=== PATIENT | male | born 1945 | race Caucasian/White ===

== ENCOUNTER 2021-04-02 08:00 | Outpatient (RCR) | payer OTHER, SELFPAY ==
--- NOTE | 2021-04-07 13:21 | PCCPR ---
Pt did not show up for rehab session this morning, call placed to patient. States he was admitted to [facility] on Wednesday for CHF exacerbation. Will be discharged this afternoon. New diuretic medication and an increase in heart failure medication. Informed patient that we would need a medical release for him to return to cardiac rehab and will most likely happen after his scheduled follow up once discharged from hospital. Pt verbalized understanding. Pt program placed on hold at this time.
== END 2021-04-02 23:59 | disposition home or self-care (01) ==
DX: Z98.61 Coronary angioplasty status (principal)
CPT/HCPCS: 93798

== ENCOUNTER 2021-05-21 08:00 | Outpatient (RCR) | payer OTHER, SELFPAY ==
--- NOTE | 2021-04-25 09:00 | ECG_ITS ---
Measurements Intervals [place] Rate: 105 P: 91 NC: 269 QRS: -82 QRSD: 206 T: 97 QT: 482 QTc: 638 Interpretive Statements ATRIAL SENSE- ELECTRONIC VENTRICULAR PACEMAKER UNDERLYING SINUS OR ECTOPIC ATRIAL TACHYCARDIA BASELINE ARTIFACT- I, II, AVR, V1-V6 NO FURTHER INTERPRETATION IS POSSIBLE ABNORMAL ECG Electronically Signed On 04-25-2021 16:20:45 RUSSIAN HISTORY PROFESSOR by Pb Cruz D.O.
== END 2021-05-30 14:10 | disposition home or self-care (01) ==
DX: Z98.61 Coronary angioplasty status (principal)
CPT/HCPCS: 93005; 93798

== ENCOUNTER 2022-02-23 10:46 | Outpatient (CLI) | payer MEDICARE, SELFPAY ==
--- NOTE | 2022-02-23 10:50 | ECG_ITS ---
Measurements Intervals [place] Rate: 71 P: 33 GA: 180 QRS: -28 QRSD: 129 T: 70 QT: 447 QTc: 486 Interpretive Statements SINUS RHYTHM WITH OCCASIONAL VENTRICULAR PREMATURE COMPLEXES BORDERLINE LEFT AXIS DEVIATION [QRS AXIS < -20] MODERATE INTRAVENTRICULAR CONDUCTION DELAY [110+ ms QRS DURATION] ST DEVIATION AND MODERATE T-WAVE ABNORMALITY, CONSIDER LATERAL ISCHEMIA OR LEFT VENTRICULAR HYPERTROPHY COMPARED TO ECG 04/25/2021 09:01:20 SINUS RHYTHM NOW PRESENT INTRAVENTRICULAR CONDUCTION DELAY NOW PRESENT VENTRICULAR PACING IS NOT SEEN ON THIS STUDY Electronically Signed On 02-25-2022 19:38:10 CDT by Edelmira Block M.D.
== END 2022-02-23 10:47 | disposition home or self-care (01) ==
LOC: CHSCARD 11:02
PROVIDERS: Visit Provider Internal Medicine Cardiovascular Disease
DX: Z98.61 Coronary angioplasty status (principal)
CPT/HCPCS: 93005

== ENCOUNTER 2022-04-06 09:30 | Outpatient (RCR) | payer SELFPAY ==
--- NOTE | 2022-02-23 10:30 | PCCPR ---
Pt arrived for 929 phase 3 cardiac rehab session, no complaints. B/P 130/74. Pt exercised on treadmill and nustep and performed a cool down. Post exercise B/P 111/70, had patient sit and rest to make sure B/P stabilizes, re-check after 3 minutes, 95/65. Pt has drank 8oz water, encouraged to drink another bottle and continue to rest. After 2 min, pt reports, I am feeling a little dizzy , while re-checking B/P pt had SYNCOPAL EPISODE. Slouched over in chair, lasted approx 4-5 seconds, arousable to name and touch, immediately alert and oriented. Stat EKG obtained. Final B/P 113/68. Pt informed and with patient. Notification sent to job tracer Dr. Rajiv Kaye, however office is closed d/t holiday. Pt reports feeling alright , sent home with with instructions to seek emergency care if happens again or any other symptoms/concerns. Pt has had 2 previous syncopal episodes at home in the last 2 months, pt reports cardiology making adjustments to B/P medications.
== END 2022-04-13 10:59 | disposition home or self-care (01) ==
LOC: CHSCPRIII 09:30
DX: Z98.61 Coronary angioplasty status (principal)
CPT/HCPCS: 99199

== ENCOUNTER 2022-05-08 10:54 | Emergency (ER) | payer OTHER, MEDICARE, SELFPAY ==
[2022-05-08 11:06] VITALS: BP 89/65; PULSE 88; RESP 16; TEMP 36.7; O2SAT 100
[2022-05-08 11:10] VITALS: BP 98/60; O2SAT 96
--- NOTE | 2022-05-08 11:36 | ED.URI ---
HPI - URI/Sore Throat General Chief Complaint: Upper Respiratory Infection Stated Complaint: SOB, body aches, headache, sore throat, cough Time Seen by Provider: 05/08/22 11:15 Source: patient and RN notes reviewed Mode of arrival: ambulatory Limitations: no limitations History of Present Illness HPI Narrative: Patient states that he tested positive for COVID last evening. He has been ill for the last 2-3 days. He has been having fever cough fatigue sore throat. He is concerned as he was recently in the hospital for significant congestive heart failure and had cardiac stents placed. He says he gets a little short of breath when he exerts himself. That has made him little more concerned. MD elicited complaint: fever, cough and sore throat Onset (ago): day(s) (3) Consistency: constant Severity: moderate Description of mucous: clear Able to tolerate fluids by mouth: Yes Exacerbating factors: other Relieving factors: nothing Associated symptoms: shortness of breath (mild with exertion) and other (fatigue) Treatments prior to arrival: none Related Data Home Medications Medication Instructions Recorded Confirmed aspirin 81 mg tablet 81 mg PO DAILY 05/08/22 05/08/22 carvedilol 3.125 mg tablet (Coreg) 3.125 mg PO BID 05/08/22 05/08/22 melatonin 3 mg tablet 3 mg PO HS 05/08/22 05/08/22 metoprolol succinate 25 mg 25 mg PO DAILY 05/08/22 05/08/22 tablet,extended release 24 hr primidone 250 mg tablet 250 mg PO HS 05/08/22 05/08/22 rosuvastatin 40 mg tablet 40 mg PO DAILY 05/08/22 05/08/22 Allergies Allergy/AdvReac Type Severity Reaction Status Date / Time No Known Allergies Allergy Mild Verified 09/18/09 06:38 Review of Systems Review of Systems: All systems reviewed & are unremarkable except as noted in HPI and below PMFSH Family History Family History (Updated 01/11/14 @ 07:13 by DOCTOR UNKNOWN) Mother Family history of multiple sclerosis Sibling Hypertension Father Hypertension, Onset Age: 85 Family history of Alzheimer's disease, Onset Age: 85 Social History Social History Smoking status: Never smoker Alcohol intake: current Exam Const: General: healthy appearing, no acute distress and alert Nutritional Appearance: well nourished Orientation/consciousness: patient oriented x3 Limitations: no limitations HENMT: Head: normal to inspection Ears: external ears normal Eyes: Conjunctivae: conjunctivae normal Pupils: Equal, round and reactive pupils present EOM: EOMs intact bilaterally Neck: Neck: normal visual inspection Resp: Effort & Inspection: normal respiratory effort Auscultation: clear to auscultation bilaterally Cardio: Rate: regular rate Rhythm: regular rhythm GI: GI Palp: Yes Soft to palpation and No Tenderness to palpation present (GI) Auscultation: normal bowel sounds Back/Spine/Pelvis: Cervical Spine: cervical ROM normal Thoracic/Lumbar Spine: thoraco-lumbar ROM normal Skin: General skin exam: normal color Rashes: no rashes Neuro: General: patient oriented x3, moves all extremities, no focal motor deficits and CN's II-XI intact bilaterally Speech: normal speech Gait exam (Neuro): Normal gait present Extrem: General: normal to inspection and no clubbing, cyanosis or edema Psych: Mental Status: mental status grossly normal Affect: normal affect Attitude: cooperative Course Vital Signs Vital signs: Vital Signs Temperature 36.7 C 05/08/22 11:06 Pulse Rate 88 05/08/22 11:06 Respiratory Rate 16 05/08/22 11:06 Blood Pressure 89/65 L 05/08/22 11:06 Pulse Oximetry 100 05/08/22 11:06 Oxygen Delivery Room Air 05/08/22 11:06 Temperature 36.9 C 05/08/22 11:59 Pulse Rate 79 05/08/22 11:59 Respiratory Rate 20 05/08/22 11:59 Blood Pressure 96/71 L 05/08/22 11:59 Pulse Oximetry 94 05/08/22 11:59 Oxygen Delivery Room Air 05/08/22 11:59 Discharge Plan Discharge Clinical Impression: COVID-19 Patient Disposition:
[2022-05-08 11:59] VITALS: BP 96/71; PULSE 79; RESP 20; TEMP 36.9; O2SAT 94
== END 2022-05-08 12:00 | disposition home or self-care (01) ==
PROVIDERS: Emergency Provider Emergency Medicine
DX: U07.1 COVID-19 (principal); Z79.82 Long term (current) use of aspirin
CPT/HCPCS: 99283

== ENCOUNTER 2022-11-13 09:30 | Outpatient (RCR) | payer MEDICARE, OTHER, SELFPAY | END 2022-11-13 23:59 | disposition home or self-care (01) | DX: I50.9 Heart failure, unspecified (principal) | CPT/HCPCS: 93798 ==

== ENCOUNTER 2022-11-20 09:30 | Outpatient (RCR) | payer MEDICARE, OTHER, SELFPAY | END 2022-11-20 13:00 | disposition home or self-care (01) | DX: I50.9 Heart failure, unspecified (principal) | CPT/HCPCS: 93798 ==

== ENCOUNTER 2023-03-16 08:00 | Outpatient (RCR) | payer SELFPAY | END 2023-03-17 13:44 | disposition home or self-care (01) | LOC: CHSCPRIII 08:00 | DX: I50.9 Heart failure, unspecified (principal) | CPT/HCPCS: 99199 ==

== ENCOUNTER 2023-06-28 08:01 | Outpatient (RCR) | payer OTHER, SELFPAY ==
--- NOTE | 2023-06-28 08:57 | BUPTOPEVAL1 ---
Assessment and note entered by Delio Millan Evaluation Information Assessment Status Evaluation Diagnosis right shoulder pain Onset 03/31/23 Subjective Information Pt. reports he fell in mid March with outstretched right arm. He reports that he was using BP medicine that lowered his pressure causing the fall. He reports that developed right shoulder pain after the fall. He reports that he does have difficulty with reaching overhead and behind his back. He states that putting on his belt and reaching in his back pocket will increase his pain. He reports that he is sleeping better since receiving a cortisone injection. He reports that he still cannot reach overhead with the right arm and he is right hand dominant. Pt. reports that he had no complication with the shoulder before the fall. He reports that his goal for therapy is to improve his shoulder mobility. Reported Pain Level Pain Score 3: Self Report Assessment PT Clinical Summary Pt. is a 78 year old male who enters the clinic with right shoulder pain. Pt. presents with indication of right rotator cuff syndrome. He currently presents with impaired right shoulder mobility, impaired right u.e. strength, functional decline and pain. Continued skilled PT is indicated in order to improve these areas to allow for improved comfort and efficiency with IADL performance. Plan of Care Interventions Hot Pack/Cold Pack,Manual Therapy,Neuro Re- education,Patient/Caregiver Educati,Therapeutic Activities,Therapeutic Exercise PT Services Indicated Yes Treatment Frequency and 2x/week x 10 visits Duration These treatments will address the objective and functional deficits as defined above. The patient will be advanced safely and appropriately in order for the patient to progress towards his/her prior level of function. Additional exercises will be introduced and as well as a comprehensive home exercise program upon discharge, if needed, ?to ensure carryover of functional gains achieved in the clinic. This treatment plan has been reviewed and agreement upon by the patient.
--- NOTE | 2023-06-28 08:58 | OPREHPOC ---
Outpatient Therapy Plan of Care This is a Multidisciplinary Plan of Care that may contain components documented by all disciplines (PT, OT, and ST.) PT Problem 1 PT Problem #1 Knowledge Deficit PT Goal 1 Goal Pt. will be independent with a HEP addressing mobility spiritism at the right shoulder. Target Visit 2 PT Problem 2 PT Problem #2 Impaired Range of Motion PT Goal 1 Goal Pt. will present with 150 degrees active right shoulder flexion to improve efficiency with overhead activities. Target Visit 10 PT Problem 3 PT Problem #3 Impaired Strength PT Goal 1 Goal Pt. will present with 4+/5 right shoulder flexion, ER and abduction strength. Target Visit 10 PT Problem 4 PT Problem #4 Impaired Functional Mobil PT Goal 1 Goal Pt. will present with 30% limitation or less with the Quick DASH indicating improved function. Target Visit 10
--- NOTE | 2023-07-02 08:44 | PCPTNOTE ---
patient no call no show
--- NOTE | 2023-07-23 09:10 | PCPTNOTE ---
Patient cancelled session today due to illness.
--- NOTE | 2023-07-26 15:34 | BUPTOPEVAL1 ---
Assessment and note entered by Lindsay Jackson PTA Evaluation Information Assessment Status Evaluation Diagnosis right shoulder pain Onset 03/31/23 Subjective Information Pt. reports he fell in mid March with outstretched right arm. He reports that he was using BP medicine that lowered his pressure causing the fall. He reports that developed right shoulder pain after the fall. He reports that he does have difficulty with reaching overhead and behind his back. He states that putting on his belt and reaching in his back pocket will increase his pain. He reports that he is sleeping better since receiving a cortisone injection. He reports that he still cannot reach overhead with the right arm and he is right hand dominant. Pt. reports that he had no complication with the shoulder before the fall. He reports that his goal for therapy is to improve his shoulder mobility. Reported Pain Level Pain Score 3: Self Report Pain Score 0: Self Report Pain Score 2: Self Report Pain Score 4: Self Report Pain Score 3: Self Report Assessment PT Clinical Summary Pt. is a 78 year old male who enters the clinic with right shoulder pain. Pt. presents with indication of right rotator cuff syndrome. He currently presents with impaired right shoulder mobility, impaired right u.e. strength, functional decline and pain. Continued skilled PT is indicated in order to improve these areas to allow for improved comfort and efficiency with IADL performance. Plan of Care Interventions Hot Pack/Cold Pack,Manual Therapy,Neuro Re- education,Patient/Caregiver Educati,Therapeutic Activities,Therapeutic Exercise PT Services Indicated Yes PT Services Indicated Yes PT Services Indicated Yes PT Services Indicated Yes PT Services Indicated Yes Treatment Frequency and 2x/week x 10 visits Duration These treatments will address the objective and functional deficits as defined above. The patient will be advanced safely and appropriately in order for the patient to progress towards his/her prior level of function. Additional exercises will be introduced and as well as a comprehensive home exercise program upon discharg
== END 2023-08-16 11:22 | disposition home or self-care (01) ==
LOC: CHSPT 08:01
PROVIDERS: Visit Provider Orthopaedic Surgery
DX: M25.511 Pain in right shoulder (principal)
CPT/HCPCS: 97110; 97161; 97530

== ENCOUNTER 2023-09-30 08:00 | Outpatient (RCR) | payer SELFPAY ==
[2023-09-14 09:28] LABS: Glucose Point of Care 153 mg/dl (65-105)
== END 2023-10-05 14:37 | disposition home or self-care (01) ==
LOC: CHSCPRIII 08:00
DX: I50.9 Heart failure, unspecified (principal)
CPT/HCPCS: 82948; 99199

== ENCOUNTER 2024-04-08 18:43 | Emergency (ER) | payer OTHER, SELFPAY ==
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
[2024-04-08 19:04] VITALS: BP 156/89; PULSE 70; RESP 20; TEMP 36.6; O2SAT 100
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
[2024-04-08 20:47] VITALS: BP 156/85; PULSE 72; RESP 18; TEMP 36.6; O2SAT 97
[2024-04-08 20:58] LABS: Glucose Point of Care 82 mg/dl (65-105)
[2024-04-08 21:40] VITALS: BP 159/88; PULSE 71; RESP 20; O2SAT 97
== END 2024-04-08 21:40 | disposition short-term general hospital (02) ==
PROVIDERS: Emergency Provider Internal Medicine Critical Care Medicine
DX: G93.6 Cerebral edema (principal); I10 Essential (primary) hypertension; E78.5 Hyperlipidemia, unspecified; Z85.46 Personal history of malignant neoplasm of prostate; E11.9 Type 2 diabetes mellitus without complications; I25.10 Atherosclerotic heart disease of native coronary artery without angina pectoris; Z79.899 Other long term (current) drug therapy; Z79.82 Long term (current) use of aspirin
CPT/HCPCS: 70450; 72125; 72131; 82948; 99285

== ENCOUNTER 2024-06-20 13:59 | Outpatient (CLI) | payer OTHER, SELFPAY ==
--- NOTE | ~2024-06-20 | XR_ITS ---
AP view of the pelvis and AP and lateral views of the left hip Clinical history: Sacroiliitis Findings: No acute fracture or dislocation is seen. Osseous alignment is anatomic. Bilateral hip and SI joint spaces are preserved. Soft tissues are unremarkable. Impression: No significant abnormality is seen. Reviewed, dictated and finalized at [facility]. MACEUTICAL WORKER Impression: No significant abnormality is seen.
--- NOTE | ~2024-06-20 | XR_ITS ---
XR sacroiliac joints min 3V 06/20/2024 14:29 Indication: Sacroiliitis Procedure: 3 view sacroiliac joints Comparison: 06/20/2024 Findings: Sacroiliac joints are symmetric with mild degenerative changes. No evidence for ankylosis o r erosion. There is advanced lower lumbar spondylosis. Sacral foramen are symmetric. 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 Reviewed, dictated and finalized at [facility]. 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
== END 2024-06-20 14:00 | disposition home or self-care (01) ==
LOC: MICIMG 14:01
PROVIDERS: PCP Anesthesiology Pain Medicine; Visit Provider Anesthesiology Pain Medicine
DX: M46.1 Sacroiliitis, not elsewhere classified (principal)
CPT/HCPCS: 72202; 73502